=== PATIENT | female | born 1990 | race Caucasian/White ===

== ENCOUNTER 2017-06-12 14:12 | Emergency (ER) | payer BC, MEDICAID, OTHER ==
[~2017-06-12] VITALS: Ht 160 cm; Wt 69.3 kg
[~2017-06-12 14:12] MED LIST: CYCL5TAB PO; DICL75 PO
[2017-06-12 14:22] VITALS: BP 134/74; PULSE 81; RESP 16; TEMP 97.9; O2SAT 98
--- NOTE | 2017-06-12 15:39 | PD ---
HPI Chief Complaint: Cold / Flu Symptoms Time Seen by Provider: 14:49 Travel History International Travel<30 days: No Contact w/Intl Traveler<30days: No Traveled to known affect area: No History of Present Illness HPI 26-year-old female that presents to the ED for evaluation of cold like symptoms for the past 3 days. Patient comes here with her son who has been sick for today. Per patient she was concerned she may be having the flu secondary to her symptoms. She is concerned that he might have it as well. Patient's is having body aches, congestion and cough. No abdominal pain. Nausea or vomiting. Headaches noted as well as sore throat. Cough is productive. No allergies to medication. No chest pain or shortness of breath. No other medical issues at this time. No recent travel. PFSH Past Medical History Anxiety: Yes (PANIC ATTACKS) Diminished Hearing: No Immunizations Current: Yes Tetanus Vaccination: Unknown ?: Not Menopausal: No : 1 Para: 0 Miscarriage: 0 : 0 Social History Alcohol Use: No Tobacco Use: No Substance Use: No Allergies-Medications (Allergen,Severity, Reaction): Coded Allergies: No Known Allergies (Verified Adverse Reaction, Unknown, 06/12/17) Reported Meds & Prescriptions Reported Meds & Active Scripts Active No Active Prescriptions or Reported Medications Review of Systems Except as stated in HPI: all other systems reviewed are Neg Physical Exam Narrative GENERAL: Well-nourished, well-developed patient in no apparent distress. SKIN: Warm and dry. HEAD: Atraumatic. Normocephalic. EYES: Pupils equal and round reactive to light and accommodation. No scleral icterus. No injection or drainage. ENT: No nasal bleeding or discharge. Mucous membranes pink and moist. TMs are clear with no sign of infection or perforation. No mastoid tenderness. Ear canals are intact bilaterally. No lymphadenopathy. Nostril mucosa is red and moist with clear mucus noted. No sinus tenderness to palpation noted. Tonsils are not enlarged or swollen. No ulvua Deviation. Tongue is midline. NECK: Trachea midline. No JVD. No meningeal signs noted CARDIOVASCULAR: Regular rate and rhythm. RESPIRATORY: No accessory muscle use. Clear to auscultation. Breath sounds equal bilaterally. GASTROINTESTINAL: Abdomen soft, non-tender, nondistended. Hepatic and splenic margins not palpable. MUSCULOSKELETAL: Extremities without clubbing, cyanosis, or edema. No obvious deformities. NEUROLOGICAL: Awake and alert. No obvious cranial nerve deficits. Motor grossly within normal limits. Five out of 5 muscle strength in the arms and legs. Normal speech. PSYCHIATRIC: Appropriate mood and affect; insight and judgment normal. Data Data Last Documented VS Vital Signs Date Time Temp Pulse Resp B/P (MAP) Pulse Ox O2 Delivery O2 Flow Rate FiO2 06/12/17 14:22 97.9 81 16 134/74 (94) 98 Orders Orders Influenzae A/B Antigen (06/12/17 14:36) Ed Discharge Order (06/12/17 15:36) MDM Medical Decision Making Medical Screen Exam Complete: Yes Emergency Medical Condition: Yes Medical Record Reviewed: Yes Interpretation(s) Influenza was negative Differential Diagnosis Viral illness versus influenza versus bronchitis Narrative Course 26-year-old female that presents to the ED for evaluation of cold-like symptoms. Patient was properly examined and was found to have signs and symptoms consistent with appears to be viral illness. Patient was checked for the flu and this was negative. Reassuring. Son also was negative for the flu. Less concerning to this is a false negative test. At this time recommend trial of [id number] remedies. Patient was given note for work. Follow- up with PCP. See ED if worsening symptoms. Diagnosis Primary Impression: Viral upper respiratory infection Patient Instructions: General Instructions Departure Forms: Tests/Procedures, Work Release Enter return to work date: Jun 16, 2017 Additional Instructions: Motrin and Tylenol for pain and fever. You can use [id number] antihistamine as well as well as Mucinex as needed for runny nose and congestion. Cough drops for cough as needed. Drink plenty of fluids. Follow-up with PCP. See ED for worsening symptoms. Med/Other Pt SpecificInfo: Prescription(s) given Scripts No Active Prescriptions or Reported Meds Disposition: DISCHARGE HOME Condition: Stable Rishabh Espinoza Jun 12, 2017 15:39
== END 2017-06-12 15:50 | disposition home or self-care (01) ==
LOC: PHEFT 14:12
DX: J06.9 Acute upper respiratory infection, unspecified (principal)
CPT/HCPCS: 87804; 99283